=== PATIENT | female | born 1980 | race Caucasian/White ===

== ENCOUNTER → 2022-05-02 13:56 | Outpatient (CLI) | payer OTHER, SELFPAY ==
--- NOTE | ~2022-05-02 | MM_ITS ---
EXAMINATION: MM screening andry BI w luis enrique HISTORY: Screening mammogram TECHNIQUE: Craniocaudal and mediolateral oblique 3-D tomosynthesis images were obtained and synthetic 2-D images were generated. CAD analysis was submitted and interpreted. COMPARISON: No prior mammogram is available for comparison at this institution. BREAST PARENCHYMAL COMPOSITION: The breasts are heterogeneously dense, which may obscure small masses . FINDINGS: There is no evidence of suspicious mass, calcification, or architectural distortion to sugg est malignancy in either breast. IMPRESSION: 1. No mammographic evidence of malignancy. 2. Recommend routine screening mammography in one year. BI-RADS Category 1: Negative Reviewed, dictated and finalized at location A.
== END ==
PROVIDERS: PCP Family Medicine; Visit Provider Obstetrics & Gynecology
DX: Z12.31 Encounter for screening mammogram for malignant neoplasm of breast (principal)
CPT/HCPCS: 77063; 77067

== ENCOUNTER 2022-12-12 15:38 | Outpatient (CLI) | payer OTHER, SELFPAY ==
--- NOTE | ~2022-12-12 | CT_ITS ---
EXAMINATION: CT abdomen pelvis wo con DATE: 12/12/2022 16:07 INDICATION: Hematuria TECHNIQUE: Computed tomography (CT) of the abdomen and pelvis was performed without intravenous contr ast. The dose-length product was 221.91 mGy-cm. Automated exposure control and iterative reconstructi on technique were employed. COMPARISON: None. FINDINGS: Lung bases are unremarkable. Heart size is normal. No significant pleural or pericardial ef fusion. No significant vascular abnormality. The liver, spleen, pancreas, adrenal glands and left kid un are unremarkable for noncontrast CT. There is a stone in the right renal pelvis measuring 8 x 4 m m. Nonobstructive bowel gas pattern. Gallbladder is present. No free air or free fluid. No abnormal p elvic masses or fluid collections. No significant vascular abnormality. No lymphadenopathy. No free a ir or free fluid. IMPRESSION: 1. Renal stone in the right renal pelvis measuring 8 x 4 mm. Reviewed, dictated and finalized at location A.
== END 2022-12-12 15:39 | disposition home or self-care (01) ==
LOC: ANHIMG 15:40
PROVIDERS: PCP Family Medicine; Visit Provider Physician Assistant
DX: R10.11 Right upper quadrant pain (principal); R10.31 Right lower quadrant pain; R31.9 Hematuria, unspecified; N20.0 Calculus of kidney
CPT/HCPCS: 74176

== ENCOUNTER → 2022-12-23 10:44 | Outpatient (CLI) | payer OTHER, SELFPAY ==
--- NOTE | ~2022-12-23 | XR_ITS ---
Supine and upright views of the abdomen Clinical history: Ureteral stone Findings: Bowel gas pattern is nonspecific. No evidence for obstruction or free air. There is a 6 mm stone at the right renal pelvis or proximal right ureter. Probable pelvic phleboliths present. Osseou s structures are intact. Impression: 6 mm stone at the right renal pelvis or proximal right ureter. Reviewed, dictated and finalized at [facility]. Impression: 6 mm stone at the right renal pelvis or proximal right ureter.
== END ==
PROVIDERS: PCP Nurse Practitioner; Visit Provider Urology
DX: N20.1 Calculus of ureter (principal)
CPT/HCPCS: 74018

== ENCOUNTER 2022-12-31 10:39 | Outpatient (CLI) | payer OTHER, SELFPAY ==
[2022-12-31 11:19] LABS: INR 0.9; Prothrombin Time 12.9 Seconds (11.1-14.7)
[2022-12-31 11:20] LABS: Partial Thromboplastin Time 31.1 SECONDS (22.3-36.8)
== END 2022-12-31 10:40 | disposition home or self-care (01) ==
LOC: ANHSURGERY 10:44
PROVIDERS: PCP Nurse Practitioner; Visit Provider Urology
DX: Z01.812 Encounter for preprocedural laboratory examination (principal); N20.0 Calculus of kidney
CPT/HCPCS: 36415; 85610; 85730; 87086

== ENCOUNTER 2023-01-03 00:47 | Day surgery (SDC) | payer OTHER, SELFPAY ==
[2022-12-31 08:38] VITALS: BMI 24.4
--- NOTE | 2022-12-31 08:42 | PC.NURSE ---
Report to the Outpatient Waiting Room, entrance under the green pavilion located off [facility], at time 8:00 on date 01/03/23. Planned Procedure Time: 10:00. Time changes happen often and if your time is changed the preop area will call you the afternoon before. - You and your visitor will be asked to self-screen and do not enter if you have any COVID symptoms. - A mask is optional within the hospital at this time. Patients may have clear liquids (water, carbonated beverages, clear teas, apple juice) until 3 hours prior to surgery (7:00) with a maximum of 20 ounces. - No food from midnight until time of surgery Take the following medications with a SIP of water the morning of surgery: FLUOXETINE, PAIN PILL IF NEEDED DO NOT STOP ANY OF YOUR OTHER PRESCRIPTION MEDICATIONS PRIOR TO SURGERY EXCEPT THE FOLLOWING Medications to discontinue per physician: N/A Date to take last dose: N/A Please no make-up, nail spanish, hairspray, perfume, deodorant, or body powder the day of surgery. No jewelry (including any body piercings) or valuables the day of surgery, leave them at home. Please take a shower or bath the night before, or the morning of, surgery with an antibacterial soap. Wear comfortable, loose fitting clothing. - Jewelry must be removed prior to entering the operating room. Rings and piercings that are not removed may be cut off. - The hospital will not accept responsibility for valuables. - Please leave all valuables, including medications, at home the day of surgery. If you are going home after surgery, a licensed pickup driver must drive you home. - NO public transportation without another adult if you receive anesthesia. - We recommend that an adult stay with you for 24 hours following discharge. - We also recommend that you do not drive, make important decision, drink alcoholic beverages, or take any drugs that were not prescribed by your health care provider for at least 24 hours after your discharge time. Follow any additional instructions given to you from your surgeon. If you or anyone in your household have experienced Covid symptoms in the past week, please notify your surgeon or the nurse liaison at the phone number below for possible testing. Telephone instructions given to PT - SUMANTH BEASLEY and asked if any additional questions and then verbalized understanding. Patient advised to call surgeon office or pre surgery nurse liaison [phone] if any additional questions.
[2023-01-03] VITALS (9 sets, daily range): BP systolic 111–123; BP diastolic 68–87; PULSE 74–108; RESP 16–20; TEMP 36.4–36.7; O2SAT 99–100
--- NOTE | ~2023-01-03 | XR_ITS ---
XR abdomen/kub 1V 01/03/2023 08:13 Indication: Preop ESWL Procedure: KUB Comparison: 12/23/2022 Findings: There is a 9 mm stone in the expected location of the right renal pelvis. Bowel gas pattern nonobstructive. There are multiple pelvic phleboliths. No acute osseous abnormality. Stable right ne phrolithiasis. Impression: 1: Reviewed, dictated and finalized at location B. Impression: 1:
[2023-01-03] MEDS: LACTATED RINGERS 1,000 ML 30 ML IV CONT (08:30)
--- NOTE | 2023-01-03 08:31 | WPDANESEPPF ---
Anes - Initial Pre Proc Eval Procedure: Operation Date: 01/03/23 10:00 Proposed Procedures p Right Extracorporeal Shock Wave Lithotripsy - Benjamin Mcneil MD Date/Time: 01/03/23 08:31 Surgeon: Benjamin Mcneil MD Pre Op Diagnosis: right kidney stone Patient Data Age: 42 Gender: F Height: 1.52 m Weight: 56.7 kg Allergies Allergy/AdvReac Type Severity Reaction Status Date / Time No Known Allergies Allergy Unknown Verified 12/31/22 08:37 Home Medications Medication Instructions Recorded Confirmed Type fluoxetine 20 mg capsule 20 mg PO DAILY 10/07/19 12/31/22 History drospirenone (contraceptive) 4 mg 1 tablet PO DAILY 12/04/22 12/31/22 History (28) tablet (Slynd) hydrocodone 5 mg-acetaminophen 325 1 tablet PO Q6H PRN Pain 12/31/22 12/31/22 History mg tablet Patient hx anesthesia problems: post op nausea/vomiting Family hx anesthesia problems: none Results Review: All pre-operative results and documents have been reviewed as part of the pre-operative evaluation. [facility] Past Medical History Medical History Anxiety Panic disorder Raynauds phenomenon Social History Social History Social History: Smoking status: Never smoker Second hand tobacco smoke exposure: No Alcohol intake: current Drinks per week: 2 Substance use: never Substance use type: does not use Living arrangements: with family Occupation/Education: occupation Gender identity (if verbalized by the patient): Female Sexual Orientation (if Verbalized by the Patient): Straight or Heterosexual Spiritual care concerns: No Anes - Eval Final PreProcedure Day of Procedure 01/03/23 08:31 Patient weight: normal Heart: regular rate and rhythm Lungs: clear to auscultation Airway: Mallampati scale class II Neurological: alert and oriented Last oral intake: >/= 8 hours ASA classification: II Emergent: no Anesthetic plan: proceed Anesthesia type and monitoring: general GIVS and standard monitoring Results Review: All pre-operative results and documents have been reviewed as part of the pre-operative evaluation. Informed Consent: The patient's anesthetic plan and its attendant risks and benefits were discussed with the patient/family/POA. Questions were solicited and answers provided to the satisfaction of the patient/family/POA.
--- NOTE | 2023-01-03 08:56 | WPDHPUPDATE1 ---
History and Physical Update Update Date/Time: 01/03/23 08:56 History and Physical has been reviewed, including an updated exam of the patient. There are NO changes in the patient's condition. Risks, benefits, and alternatives have been discussed and questions answered. Patient agrees to proceed with procedure. Proceed with lithotripsy of right renal calculus
[2023-01-03] MEDS: ceFAZolin 2 GM/D5W 50 ML 2 GM/50 ML BAG IVPB (10:09)
--- NOTE | 2023-01-03 10:53 | W.PM.PROC2 ---
Procedure Note - Detailed Date of Procedure 01/03/23 Pre-op Diagnosis right kidney stone Post-op Diagnosis Same Procedure Performed Lithotripsy of right renal calculus Surgeon Benjamin Mcneil MD Anesthesia General Description of Procedure Patient is taken to the operative suite correctly identified. Once anesthesia was obtained the stone was localized in both planes. Two thousand five hundred shocks were given the stone. There appeared to be good fragmentation. Patient tolerated procedure well without any complications and was taken recovery stable condition. She will follow-up in 710 days with KUB. This completes dictation. Please send a copy to my office Estimated Blood Loss 0 Drains No Packing No Pathology None sent Complications No immediate complications Condition Stable
[2023-01-03] MEDS: ONDANSETRON INJ 4 MG/2 ML VIAL IV PUSH (11:19)
[2023-01-03] MEDS: oxyCODONE HCL (*CRX) 5 MG TAB IR PO (12:04)
[2023-01-03] MEDS: diphenhydrAMINE HCl INJ 50 MG/ML VIAL 25 MG IV PUSH (12:10)
[2023-01-03] MEDS: SCOPOLAMINE 1.5 MG PATCH TRANSDERM (12:17)
--- NOTE | 2023-01-03 12:59 | SUR.PHASEII ---
[id number] DR. OSEGUERA CALLED RE: PATIENT'S ANTIBIOTIC SCRIPT.
== END 2023-01-03 13:00 | disposition home or self-care (01) ==
PROVIDERS: PCP Nurse Practitioner; Visit Provider Urology
PROC: (CPT 50590; principal; 2023-01-03 10:00)
DX: N20.0 Calculus of kidney (principal); F41.0 Panic disorder [episodic paroxysmal anxiety]; F41.9 Anxiety disorder, unspecified
CPT/HCPCS: 50590; 36415; 74018; 85610; 85730; 87086; A9270; J0131; J0690; J1100; J1200; J2250; J2405; J2704; J7120

== ENCOUNTER 2023-01-14 15:10 | Outpatient (CLI) | payer OTHER, SELFPAY ==
--- NOTE | ~2023-01-14 | XR_ITS ---
XR abdomen/kub 1V 01/14/2023 15:24 INDICATION: Right renal stone TECHNIQUE: KUB COMPARISON: None FINDINGS: Bowel gas pattern is normal. There is no evidence of free air, mass, organomegaly, ascites or obstruction. No abnormal calculi are seen. The bones appear intact. There are pelvic phlebolith s. IMPRESSION: 1: No acute abdominal abnormality identified. Reviewed, dictated and finalized at location L.
== END 2023-01-14 15:11 | disposition home or self-care (01) ==
LOC: ANHIMG 15:15
PROVIDERS: PCP Nurse Practitioner; Visit Provider Urology
DX: N20.0 Calculus of kidney (principal)
CPT/HCPCS: 74018

== ENCOUNTER 2023-05-01 08:06 | Emergency (ER) | payer OTHER, SELFPAY ==
--- NOTE | 2023-05-01 08:20 | ED.URI ---
HPI - URI/Sore Throat General Chief Complaint: Upper Respiratory Infection Stated Complaint: cough,fever Source: patient and RN notes reviewed Mode of arrival: ambulatory Limitations: no limitations History of Present Illness HPI Narrative: 43-year-old female presented for complaint of cough, chest congestion, headache for about 5 days. At the onset she reports fever up to 102 with associated body aches which have resolved. Taking Sudafed Tylenol for symptoms. Denies known sick contacts. Denies shortness of breath, wheezing, sinus congestion or drainage, nausea, vomiting, diarrhea or lethargy. She took a negative home COVID test the day after symptom onset. MD elicited complaint: cough Related Data Home Medications Medication Instructions Recorded Confirmed fluoxetine 20 mg capsule 20 mg PO DAILY 10/07/19 05/01/23 drospirenone (contraceptive) 4 mg 1 tablet PO DAILY 12/04/22 05/01/23 (28) tablet (Slynd) Allergies Allergy/AdvReac Type Severity Reaction Status Date / Time No Known Allergies Allergy Unknown Verified 05/01/23 08:24 Review of Systems Review of Systems: CONSTITUTIONAL: denies malaise, chills, sweats, fever EYES: Denies visual changes, redness, or discharge ENT: denies rhinorrhea, congestion, sinus pain, otalgia, sore throat CARDIOVASCULAR: Denies chest pain, palpitations, edema RESPIRATORY: Reports cough, Denies dyspnea GASTROINTESTINAL: Denies abdominal pain, nausea, vomiting, diarrhea SKIN: Denies rash or itching MUSCULOSKELETAL: Denies myalgia NEUROLOGIC: Endorses headache PMFSH Past Medical History Medical History Anxiety Panic disorder Raynauds phenomenon Social History Social History Social History: Smoking status: Never smoker Second hand tobacco smoke exposure: No Alcohol intake: current Drinks per week: 2 Substance use: never Substance use type: does not use Living arrangements: with family Occupation/Education: occupation Gender identity (if verbalized by the patient): Female Sexual Orientation (if Verbalized by the Patient): Straight or Heterosexual Spiritual care concerns: No Exam Narrative: GENERAL: mildly Ill-appearing, nontoxic HEAD: Normocephalic EYES: PERRLA, conjunctivae clear ENT: Mucous membranes moist. TMs pearly you with dull light reflex bilaterally; no tragal tenderness. Oropharynx normal without erythema, lesions or exudate, no drooling, no hoarseness, no trismus, uvula midline. No tripod positioning, muffled voice, soft palate or pharyngeal wall bulging NECK: Supple. No lymphadenopathy CHEST: Clear to auscultation, breath sounds equal. HEART: Regular rate and rhythm. No murmur heard. SKIN: Warm, dry, no rash. NEURO: Alert and oriented x3. PSYCH: Normal mood and affect Course Course Emergency Course: Patient is aware of diagnosis, understands and agrees to treatment plan. Anticipatory guidance given. Patient agrees to follow-up as directed and is aware of reasons to seek care at the emergency department. Portions of this record may have been created with voice recognition software Level of Care: Express Care Visit Vital Signs Vital signs: Vital Signs Temperature 98.2 F 05/01/23 08:22 Pulse Rate 80 05/01/23 08:22 Respiratory Rate 18 05/01/23 08:22 Blood Pressure 118/83 05/01/23 08:22 Pulse Oximetry 98 05/01/23 08:22 Oxygen Delivery Room Air 05/01/23 08:22 Temperature 98.2 F 05/01/23 08:22 Pulse Rate 80 05/01/23 08:22 Respiratory Rate 18 05/01/23 08:22 Blood Pressure 118/83 05/01/23 08:22 Pulse Oximetry 98 05/01/23 08:22 Oxygen Delivery Room Air 05/01/23 08:22 reviewed MDM - URI/Sore Throat MDM Narrative Medical decision making narrative: Results of the tests reviewed with patient. Discussed physical exam findings and Rx's. Advised supportive
[2023-05-01 08:22] VITALS: BP 118/83; PULSE 80; RESP 18; TEMP 36.8; O2SAT 98
== END 2023-05-01 08:46 | disposition home or self-care (01) ==
PROVIDERS: Emergency Provider Nurse Practitioner Family; PCP Nurse Practitioner
DX: B34.9 Viral infection, unspecified (principal); Z20.822 Contact with and (suspected) exposure to COVID-19; F41.9 Anxiety disorder, unspecified; F41.0 Panic disorder [episodic paroxysmal anxiety]; I73.00 Raynaud's syndrome without gangrene
CPT/HCPCS: 87081; 87426; 87880; 99213; C9803; G0463

== ENCOUNTER → 2023-05-23 15:19 | Outpatient (CLI) | payer OTHER, SELFPAY ==
--- NOTE | ~2023-05-23 | MM_ITS ---
EXAMINATION: MM screening andry BI w luis enrique HISTORY: Screening mammogram TECHNIQUE: Craniocaudal and mediolateral oblique 3-D tomosynthesis images were obtained and synthetic 2-D images were generated. CAD analysis was submitted and interpreted. COMPARISON: 05/02/2022 bilateral screening mammogram BREAST PARENCHYMAL COMPOSITION: The breasts are heterogeneously dense, which may obscure small masses . FINDINGS: There is no evidence of suspicious mass, calcification, or architectural distortion to sugg est malignancy in either breast. There has been no suspicious interval change. IMPRESSION: 1. No mammographic evidence of malignancy. 2. Recommend routine screening mammography in one year. BI-RADS Category 1: Negative Reviewed, dictated and finalized at location A.
== END ==
PROVIDERS: PCP Nurse Practitioner; Visit Provider Obstetrics & Gynecology
DX: Z12.31 Encounter for screening mammogram for malignant neoplasm of breast (principal)
CPT/HCPCS: 77063; 77067

== ENCOUNTER 2024-06-08 11:31 | Outpatient (CLI) | payer OTHER, SELFPAY ==
--- NOTE | ~2024-06-08 | MM_ITS ---
EXAMINATION: MM screening andry BI w luis enrique HISTORY: Screening TECHNIQUE: Craniocaudal and mediolateral oblique 3-D tomosynthesis images were obtained and synthetic 2-D images were generated. CAD analysis was submitted and interpreted. COMPARISON: Comparison to multiple prior studies sequentially, with oldest reviewed study dated 03/2022. BREAST PARENCHYMAL COMPOSITION: Dense: The breasts are heterogeneously dense, which may obscure small masses FINDINGS: There is no evidence of suspicious mass, calcification, or architectural distortion to sugg est malignancy in either breast. There has been no suspicious interval change. IMPRESSION: 1. No mammographic evidence of malignancy. 2. Recommend routine screening mammography in one year. BI-RADS Category 1: Negative Reviewed, dictated and finalized at location B.
== END 2024-06-08 11:32 | disposition home or self-care (01) ==
LOC: MICIMG 11:32
PROVIDERS: PCP Nurse Practitioner; Visit Provider Nurse Practitioner
DX: Z12.31 Encounter for screening mammogram for malignant neoplasm of breast (principal)
CPT/HCPCS: 77063; 77067

== ENCOUNTER 2024-08-23 18:13 | Emergency (ER) | payer OTHER, SELFPAY ==
--- NOTE | ~2024-08-23 | XR_ITS ---
XR chest 2V Ordering provider: Erick Alvarado APRN History: 44 years Female with . cough, chest congestion, sob . Comparison: None. FINDINGS: MEDIASTINUM: The cardiac silhouette is not enlarged. LUNGS: No effusions or pneumothorax. Slightly prominent bronchovascular markings in the lower lobes. Bronchitis with possible early bronch opneumonia cannot be excluded. Follow-up advised. OTHER: No free air under the diaphragm. IMPRESSION: Prominent markings in the lower lobes which may indicate bronchitis. Early bronchopneumonia cannot be excluded. Follow-up advised. Reviewed, dictated and finalized at location A. SPHERIC CHEMIST IMPRESSION: Prominent markings in the lower lobes which may indicate bronchitis. Early bron chopneumonia cannot be excluded. Follow-up advised.
--- NOTE | 2024-08-23 18:16 | ED_ITS ---
HPI - URI/Sore Throat General Chief Complaint: Upper Respiratory Infection Stated Complaint: congestion Time Seen by Provider: 08/23/24 18:15 Source: patient Mode of arrival: ambulatory Limitations: no limitations History of Present Illness HPI Narrative: Gely is a 44-year-old female patient presenting to the clinic today with complaints of sinus and chest congestion x9 days. She reports a few days ago she started to feel better however now she has developed chest congestion again. Did have a fever 1 week ago but nothing since. Denies any chest pain but does have some shortness of breath. 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 Productive cough with clear phlegm at this time MD elicited complaint: sore throat and nasal congestion Related Data Home Medications ?Medication ?Instructions ?Recorded ?Confirmed ?Last Taken ?Type fluoxetine 20 mg capsule 20 mg PO DAILY 10/07/19 05/01/23 Unknown History drospirenone (contraceptive) 4 mg 1 tablet PO DAILY 12/04/22 05/01/23 Unknown History (28) tablet (Slynd) Allergies Allergy/AdvReac Type Severity Reaction Status Date / Time No Known Allergies Allergy Unknown Verified 08/23/24 18:29 Review of Systems Review of Systems: Pertinent positives per HPI. Patient denies any fever, chills, rash, headache, visual changes, dizziness, chest pain, palpitations, nausea, vomiting, diarrhea, constipation, abdominal pain, or any urinary issues. [facility] Past Medical History Medical History Panic disorder Anxiety Raynauds phenomenon Social History Social History Social History: Smoking status: Never smoker Second hand tobacco smoke exposure: No Alcohol intake: current Drinks per week: 2 Substance use: never Substance use type: does not use Living arrangements: with family Occupation/Education: occupation Gender identity (if verbalized by the patient): Female Sexual Orientation (if Verbalized by the Patient): Straight or Heterosexual Spiritual care concerns: No Comments At the time of my signature, I reviewed and agree with the nursing past medical, surgical, social, and family history. There is no relevant family history pertinent to the patient complaint. Exam Narrative: General: Well-developed, well nourished, in no apparent distress Head: Normocephalic, atraumatic Eyes: Pupils equally round and reactive to light bilaterally, EOM intact, sclera and conjunctive clear, no discharge, lids normal Ears: TMs intact and clear, ear canals clear, no drainage, grossly hearing normal. Nose: Nares patent, green nasal discharge, moderate inflammation, no sinus tend erness. Mouth: Oral pharynx without lesions or masses, good dentition, MMM. Postnasal drip Neck: Supple, trachea midline, no enlargement of anterior or posterior cervical nodes, no thyroid masses or goiter palpable. Cardio: Regular rate and rhythm, s1 and s2 normal, no murmur appreciated. Resp: Diminished in the bases otherwise clear, no rhonchi, rales, wheezing or rubs Course Course Emergency Course: Portions of this record may have been created with voice recognition software. Level of Care: Express Care Visit Vital Signs Vital signs: Vital Signs Temperature 36.7 C 08/23/24 18:26 Pulse Rate 70 08/23/24 18:26 Respiratory Rate 18 08/23/24 18:26 Blood Pressure 142/86 H 08/23/24 18:26 Pulse Oximetry 99 08/23/24 18:26 Oxygen Delivery Room Air 08/23/24 18:26 Temperature 36.7 C 08/23/24 18:26 Pulse Rate 70 08/23/24 18:26 Respiratory Rate 18 08/23/24 18:26 Blood Pressure 142/86 H 08/23/24 18:26 Pulse Oximetry 99 08/23/24 18:26 Oxygen Delivery Room Air 08/23/24 18:26 Vital signs reviewed MDM - URI/Sore Throat MDM Narrative Medical decision making narrative: At the time of visit patient is resting comfortably on the exam table. Patient appears to be nontoxic. Diagnostics: Chest x-ray was performed and shows likely bronchitis with possible early bronchial pneumonia Plan: I suspect patient has bronchitis/bronchopneumonia. Prescription for prednisone, azithromycin, and albuterol inhaler was sent to the pharmacy. Supportive measures were discussed with the patient and they voiced understanding discharge instructions and agrees to treatment plan. Return precautions reviewed Differential Diagnosis Differential diagnosis: Likely upper respiratory infection, otitis media, sinusitis, viral infection, bronchitis, influenza, pharyngitis and other (COVID) Imaging Data Radiologist's impression: ITS Impressions Chest X-Ray 08/23/24 18:39 IMPRESSION: Prominent markings in the lower lobes which may indicate bronchitis. Early bronchopneumonia cannot be excluded. Follow-up advised. Discharge Plan Discharge Clinical Impression: Bronchitis, Bronchopneumonia Patient Disposition: Home, Self-Care Condition: Stable Instructions: Antibiotic Form, Acute Bronchitis (ED), Pneumonia (ED) Additional Instructions: X-ray shows possible bronchitis with early bronchial pneumonia. Take prescription medications only as prescribed-albuterol inhaler, azithromycin, and prednisone Increase fluids and stay well hydrated Tylenol/motrin for pain/fever Flonase and OTC antihistamines as directed Vicks vapor rub to open sinuses Sinus rinses for congestion Cepacol spray, cough drops, throat lozenges, warm tea with honey/lemon, gargle salt water to soothe throat BRAT diet for diarrhea Clear liquids x 24 hours then advance as tolerated for nausea/vomiting Go to the ED if you develop a worsening in your condition- high fever not controlled by Tylenol or Motrin, dehydration, weakness, lethargy, shortness of breath, or chest pain. Follow up with your PCP in 3-5 days if symptoms persist. Patient Language: Divehi Prescriptions: New azithromycin 250 mg tablet See Rx Instructions .ROUTE .COMPLEX Qty: 6 0RF Rx Instructions: For 250 mg dose pack: take 500 mg today (day 1), then 250 mg for 4 days (days 2-5) prednisone 20 mg tablet 40 mg PO DAILY 5 Days Qty: 10 0RF albuterol sulfate 90 mcg/actuation HFA aerosol inhaler 2 puff inhalation Q4-6H PRN (Reason: shortness of breath or wheezing) 30 Days Qty: 8.5 0RF No Action benzonatate 200 mg capsule 200 mg PO TID PRN (Reason: cough) Qty: 20 0RF methylprednisolone [Medrol (Osiel)] 4 mg tablets,dose pack See Rx Instructions .ROUTE .COMPLEX Qty: 21 0RF Rx Instructions: orally per package directions Slynd 4 mg (28) tablet 1 tablet PO DAILY fluoxetine 20 mg capsule 20 mg PO DAILY Follow-up/Referrals: UNKNOWN,DOCTOR [Non-Staff] - Time of Disposition: 18:44 Quality NIHSS Nursing Documentation ED NIHSS nursing documentation: reviewed/agree
[2024-08-23 18:26] VITALS: BP 142/86; PULSE 70; RESP 18; TEMP 36.7; O2SAT 99
== END 2024-08-23 18:51 | disposition home or self-care (01) ==
PROVIDERS: Emergency Provider Nurse Practitioner Family; PCP Nurse Practitioner
DX: J40 Bronchitis, not specified as acute or chronic (principal); J18.0 Bronchopneumonia, unspecified organism; F41.0 Panic disorder [episodic paroxysmal anxiety]; F41.9 Anxiety disorder, unspecified; I73.00 Raynaud's syndrome without gangrene
CPT/HCPCS: 71046; 99213; G0463

== ENCOUNTER 2024-09-02 10:22 | Outpatient (CLI) | payer OTHER, SELFPAY ==
--- NOTE | ~2024-09-02 | XR_ITS ---
XR chest 2V 09/02/2024 10:33 Indication: Pneumonia Procedure: 2 view chest Comparison: 08/23/2024 Findings: There is a right apical pneumothorax. Heart size normal. No significant pleural effusion. L eft lung clear. Impression: 1: Small-moderate right apical pneumothorax. No mediastinal shift. Reviewed, dictated and finalized at location B. PLANT SUPERVISOR Impression: 1: Small-moderate right apical pneumothorax. No mediastinal shift.
== END 2024-09-02 10:23 | disposition home or self-care (01) ==
LOC: MICIMG 10:24
PROVIDERS: PCP Nurse Practitioner; Visit Provider Nurse Practitioner
DX: J93.9 Pneumothorax, unspecified (principal); J18.9 Pneumonia, unspecified organism
CPT/HCPCS: 71046

== ENCOUNTER 2025-06-23 10:21 | Emergency (ER) | payer OTHER, SELFPAY ==
[2025-06-23 10:28] VITALS: BP 133/83; PULSE 86; RESP 18; TEMP 36.7; O2SAT 100
[2025-06-23 10:41] LABS: EDUAAPPEAR Clear; EDUABILI Negative (Negative); EDUABLOOD Negative (Negative); EDUACOLOR1 Light/Pale; EDUAGLUCOSE Negative (Negative); EDUAKETONE Negative (Negative); EDUALEUKO Trace (Negative); EDUANITRATE Negative (Negative); EDUAPH 6.5; EDUAPROTEIN Negative (Negative); EDUASPGRAVITY 1.010; EDUAUROBILI 0.2
--- NOTE | 2025-06-23 10:43 | ED.FEMALEGU ---
HPI - Female Genitourinary General Chief complaint: Urogenital-Female Stated complaint: UTI Time Seen by Provider: 06/23/25 10:43 Source: patient Mode of arrival: ambulatory Limitations: no limitations History of Present Illness HPI Narrative: [age] year female presents with complaint of urinary frequency, urgency, dysuria for 1 week. Has tried [id number] Uqura with no relief of symptoms. Afebrile. No back or abdominal pain. No concern for STI or . All systems reviewed and negative except as noted above. Related Data Home Medications ?Medication ?Instructions ?Recorded ?Confirmed ?Last Taken ?Type fluoxetine 20 mg capsule 20 mg PO DAILY 10/07/19 04/04/25 Unknown History losartan 25 mg tablet mg 06/23/25 Unknown History Allergies Allergy/AdvReac Type Severity Reaction Status Date / Time No Known Allergies Allergy Unknown Verified 06/23/25 10:35 [facility] Past Medical History Medical History (Updated 06/23/25 @ 10:49 by Alyson Nguyễn APRN) Endometriosis determined by laparoscopy Endometriosis Panic disorder Anxiety Raynauds phenomenon Surgical History Surgical History History of chest tube placement H/O lithotripsy Social History Social History Social History: Smoking status: Never smoker Second hand tobacco smoke exposure: No Alcohol intake: current Drinks per week: 2 Substance use: never Substance use type: does not use Living arrangements: with family Occupation/Education: occupation Gender identity (if verbalized by the patient): Female Sexual Orientation (if Verbalized by the Patient): Straight or Heterosexual Spiritual care concerns: No Comments At time of signature, agree with nursing past medical, surgical, social and family history. There is no relevant family history pertinent to the presenting complaint. Exam Narrative: GENERAL: This is a well-nourished, well-developed patient, in no apparent distress. HEAD: normocephalic, atraumatic. EYES: PERRL. Sclera clear/white. Vision is grossly intact. EARS: External ears normal NOSE: External nose normal NECK: Neck supple, non-tender without lymphadenopathy, masses or thyromegaly. CARDIOVASCULAR: Regular rate and rhythm without murmurs, gallops, or rubs. RESPIRATORY: Clear to auscultation. Breath sounds equal bilaterally. No wheezes, rales, or rhonchi. SKIN: warm, Dry, intact with no suspicious lesions or rash, good texture and turgor. NEURO: awake, alert, and oriented to person, place and time. There were no obvious focal neurologic abnormalities. EXTREMITIES: No joint tenderness, effusion, or edema noted. Course Course Level of Care: Express Care Visit Vital Signs Vital signs: Vital Signs Temperature 36.7 C 06/23/25 10: Pulse Rate 86 06/23/25 10:28 Respiratory Rate 18 06/23/25 10:28 Blood Pressure 133/83 06/23/25 10:28 Pulse Oximetry 100 06/23/25 10:28 Oxygen Delivery Room Air 06/23/25 10: Temperature 36.7 C 06/23/25 10:28 Pulse Rate 86 06/23/25 10:28 Respiratory Rate 18 06/23/25 10:28 Blood Pressure 133/83 06/23/25 10:28 Pulse Oximetry 100 06/23/25 10:28 Oxygen Delivery Room Air 06/23/25 10:28 Reviewed MDM - Female Genitourinary MDM Narrative Medical decision making narrative: urinalysis trace leukocytes. Urine culture ordered. Will treat patient with antibiotic due to patient's symptoms. Patient is well-appearing, nontoxic. Differential Diagnosis Differential diagnosis: Likely urinary tract infection Lab Data Labs: Lab Results 06/23/25 Range/Units 10:39 POC Urine Color Light/pale POC Urine Clarity Clear POC Urine pH 6.5 POC Ur Specif Deposit 1.010 POC Urine Protein Negative (Negative) POC Ur Glucose (UA) Negative (Negative) POC Urine Ketones Negative (Negative) POC Urine Blood Negative (Negative) POC Urine Nitrite Negative (Negative) POC Urine Bilirubin Negative (Negative) POC Urine Urobilinogen 0.2 POC U Leukocyte Esteras Trace (Negative) Discharge Plan Discharge Clinical Impression: Urinary tract infection Patient Disposition: Home Condition: Stable Instructions: Antibiotic Form, Urinary Tract Infection in Women (ED) Additional Instructions: Take antibiotic as prescribed until gone. Drink at least 64 ounces of water a day. See your doctor if symptoms not improving. Patient Language: Malawian Prescriptions: New amoxicillin-pot clavulanate [Augmentin] 500-125 mg tablet 1 tablet PO BID 5 Days Qty: 10 0RF No Action losartan 25 mg tablet fluoxetine 20 mg capsule 20 mg PO DAILY Orilissa 150 mg tablet 150 mg PO DAILY Qty: 90 1RF norethindrone (contraceptive) [Oksana] 0.35 mg tablet 0.35 mg PO DAILY Qty: 84 1RF Follow-up/Referrals: Barbara,Eliza Beaulieu NP [Primary Care Provider, Unknown] Time of Disposition: 10:48
--- OUTSIDE RECORDS SUMMARY | 2025-06-23 11:24 | XMS_ITS | Clinical Summary ---
Author Organization [facility] Address [address] [place] [address] Phone Care Team Providers Care Principal Consulting Engineer Name Role Phone Salinas Blackmon MD Primary Care Provider Allergies No known active allergies Medications HYDROcodone-jennifer taminophen (NORCO) 10-325 MG Tablet Take 1 Tablet by mouth every 6 hours as needed. Active CYCLOBENZAPRINE HCL PO Take by mouth. Active FLUoxetine (PROzac) 20 MG Capsule 01/30/2021 Active Orilissa 150 MG Tablet 01/05/2021 Active tiZANidine HCl 4 MG CapsuleIndicati ons:Acute right-sided low back pain with right-sided sciatica Take 1 Capsule by mouth 3 times daily. 60 Capsule 02/04/2021 Active meloxicam (MOBIC) 15 MG TabletIndicatio ns:Acute right-sided low back pain with right-sided sciatica Take 1 Tablet by mouth daily. 30 Tablet 02/04/2021 Active Active Problems No known active problems Social History Tobacco Use Types Packs/Day Years Used Date Smoking Tobacco: Never Assessed Comments No Sex and Gender Information Value Date Recorded Sex Assigned at Not on file Legal Sex Female 10:28 AM CDT Gender Identity Not on file Sexual Orientation Not on file Last Filed Vital Signs Vital Sign Reading Time Taken Comments Blood Pressure 125/84 02/04/2021 11:01 AM CDT Pulse 83 02/04/2021 11:01 AM CDT Temperature 36.9 C (98.5 F) 02/04/2021 11:01 AM CDT Respiratory Rate 18 02/04/2021 11:01 AM CDT Oxygen Saturation 99% 02/04/2021 11:01 AM CDT Inhaled Oxygen Concentration - - Weight 54.4 kg (120 lb) 02/04/2021 11:01 AM CDT Height 152.4 cm (5') 02/04/2021 11:01 AM CDT Body Mass Index 23.44 02/04/2021 11:01 AM CDT Plan of Treatment Health Maintenance Due Date Last Done Comments Hepatitis C Virus (HCV) Screening 1981 Hepatitis B Immunization (1 of 3 - 19+ 3-dose series) 2000 Pap Smear 2002 Human Papillomavirus (HPV) Immunization (1 - 3-dose SCDM series) 2008 Cervical Cancer Screening (CCS) 2011 HPV/Cotest 2011 Influenza Immunization (#1) 04/25/202504/26, 06/28/2019, 06/02/2017, Additional history exists SARS-COV-2 Immunization ( season) 2025 07/17/2021, 10/28/2020, 09/30/2020 Respiratory Syncytial Virus (RSV) Immunization (Adult) (1 - 1-dose 75+ series) 2056 DTaP/Tdap/Td Immunization Discontinued 06/30/2013 TdaP Immunization Completed 06/30/2013 Meningococcal Immunization (ACWY) Aged Out No longer eligible based on patient's age to complete this topic Pneumococcal Immunization Combined Aged Out No longer eligible based on patient's age to complete this topic Rotavirus Immunization Aged Out No lo nger eligible based on patient's age to complete this topic Insurance Care Teams Principal Consulting Engineer Relationship Specialty Start Date End Date Salinas Blackmon MD [address] [place] [address] PCP - General Family Medicine 02/04/21
--- OUTSIDE RECORDS SUMMARY | 2025-06-23 11:24 | XMS_ITS | Clinical Summary ---
Author Organization [facility] Address [address] [place] [address] Care Team Providers Care City Collector Name Role Phone Salinas Blackmon MD Primary Care Provider [phone] Salinas Blackmon MD Unavailable [phone] Source Comments [facility],non-owned Affiliates and Associated Physician Practices is amultiple site organization consisting of ambulatory clinics and hospital sitesin [place], [place], [place] and [place]. This disclosure is being madepursuant to the Care Everywhere program and may not contain all information available regarding this patient. Last updated 18.[facility] Allergies No known active allergies Medications * Be aware that medications may not be up to date on this document. Alwaysverify current medications with the patient. 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 Gender Identity Not on file Sexual Orientation Not on file Last Filed Vital Signs Vital Sign Reading Time Taken Comments Blood Pressure 118/82 06/04/2019 6:16 PM CDT Pulse 101 06/04/2019 6:16 PM CDT Temperature 37.1 C (98.7 F) 06/04/2019 6:16 PM CDT Respiratory Rate 20 06/04/2019 6:16 PM CDT Oxygen Saturation 98% 06/04/2019 6:16 PM CDT Inhaled Oxygen Concentration - - Weight 52.3 kg (115 lb 4.8 oz) 06/04/2019 6:16 P M CDT Height 152.4 cm (5') 06/04/2019 6:16 PM CDT Body Mass Index 22.52 06/04/2019 6:16 PM CDT Plan of Treatment Health Maintenance Due Date Last Done Comments LIPID TESTING 1981 MAMMOGRAM 1981 HIV SCREENING 1996 HEPATITIS C SCREENING 03/11/1999 DTAP/TDAP/TD VACCINES (1 - Tdap) 2000 HEPATITIS B VACCINE (1 of 3 - 19+ 3-dose series) 2000 HPV VACCINE (1 - 3-dose SCDM series) 2008 DEPRESSION SCREENING 08/25/2024 COVID-19 VACCINE (1 - 2023-2 5 season) 2025 INFLUENZA VACCINE (#1) 2025 ZOSTER VACCINE (1 of 2) 2031 HIB VACCINE Aged Out No longer eligi ble based on patient's age to complete this topic MENINGOCOCCAL (Group B) VACC INE SHARED DECISION-MAKING Aged Out No longer eligibl e based on patient's age to complete this topic MENINGOCOCCAL GROUPS A/C/Y/W VACCINE Aged Out No longer eligible b ased on patient's age to complete this topic PNEUMOCOCCAL VACCINE Aged Out No long er eligible based on patient's age to complete this topic Insurance [employer] Care Teams City Collector Relationship Specialty Start Date End Date Salinas Blackmon MD [address] [place] [address] PCP - General Family Medicine 06/04/19 Salinas Blackmon MD [address] [place] [address] Family Medicine 06/04/19
--- OUTSIDE RECORDS SUMMARY | 2025-06-23 11:24 | XMS_ITS | Clinical Summary ---
Author Organization [facility] [address] Address [address] [place] [address] Care Team Providers Care Press Operator Instant Print Shop Name Role Phone Salinas Blackmon MD Primary Care Provider Allergies No known active allergies Family History Medical History Relation Name Comments Cancer Other Reported Family History Of Cancer - mother, grandmother (Added by TW Conv) Heart disease Other Heart Disease - grandfather, grandmother (Added by TW Conv) Hypertension Other Reported Previo us High Blood Pressure - father, grandmother (Added by TW Conv) Lung disease Other Pulmonary Disea se - mother (Added by TW Conv) Relation Name Status Comments Other Social History Tobacco Use Types Packs/Day Years Used Date Smoking Tobacco: Never Assessed Comments Unknown Sex and Gender Information Value Date Recorded Sex Assigned at Not on file 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
== END 2025-06-23 10:52 | disposition home or self-care (01) ==
PROVIDERS: Emergency Provider Nurse Practitioner Family; PCP Nurse Practitioner
DX: N39.0 Urinary tract infection, site not specified (principal); N80.9 Endometriosis, unspecified; F41.9 Anxiety disorder, unspecified; I73.00 Raynaud's syndrome without gangrene
CPT/HCPCS: 81003; 87086; 87147; 87186; 99213; G0463